=== PATIENT | male | born 1990 | race Caucasian/White ===

== ENCOUNTER 2016-08-05 23:01 | Emergency (ER) | payer OTHER ==
[2016-08-05 23:23] VITALS: BP 107/56; PULSE 70; RESP 20; TEMP 98.1; O2SAT 99
[2016-08-05] MEDS ORDERED: Amoxicillin-Clav 875-125 mg Tab PO STA (23:43)
[2016-08-05] MEDS ORDERED: Amoxicillin-Clav 875-125 mg Tab PO ONE (23:53)
--- NOTE | 2016-08-05 23:57 | C.PDOC ---
History Of Present Illness 25 year old male presents to the ED with complaints of right ear pain and itch for the past 4 days. Patient states the symptoms worsened today and describes the pain as a burning sensation. Denies recent illness, fever, ear discharge, throat pain, or any other complaints at this time. Time Seen by Provider: 08/05/16 23:23 Chief Complaint (Nursing): ENT Problem History Per: Patient History/Exam Limitations: None Onset/Duration Of Symptoms: Days Current Symptoms Are (Timing): Still Present Quality (Ear): denies: Discharge Severity: Mild Pain Scale Rating Of: 5 Past Medical History Reviewed: Historical Data, Nursing Documentation, Vital Signs Vital Signs: Last Vital Signs Temp 98.1 F 08/05/16 23:20 Pulse 70 08/05/16 23:20 Resp 20 08/05/16 23:20 BP 107/56 L 08/05/16 23:20 Pulse Ox 99 08/06/16 00:18 - Medical History PMH: No Chronic Diseases Family History: States: No Known Family Hx - Social History Hx Alcohol Use: No Hx Substance Use: No - Immunization History Hx Tetanus Toxoid Vaccination: No Review Of Systems Except As Marked, All Systems Reviewed And Found Negative. Constitutional: Negative for: Fever, Chills ENT: Positive for: Ear Pain (+Right ear pain). Negative for: Ear Discharge, Throat Pain Respiratory: Negative for: Cough Musculoskeletal: Negative for: Neck Pain Skin: Negative for: Rash Physical Exam - Physical Exam Appears: Non-toxic, No Acute Distress Skin: Normal Color, Warm, Dry Head: Atraumatic, Normacephalic Eye(s): bilateral: Normal Inspection Ear(s): Left: Normal, Right: TM Erythema, Other (+Normal external canal. No mastoid tenderness) Oral Mucosa: Moist Throat: Normal, No Erythema, No Exudate Neck: Normal ROM, Supple Lymphatic: No Adenopathy Cardiovascular: Rhythm Regular, No Friction Rub, No Murmur Respiratory: Normal Breath Sounds, No Accessory Muscle Use, No Rales, No Rhonchi , No Wheezing Extremity: Normal ROM Neurological/Psych: Oriented x3, Normal Speech, Normal Cognition, Normal Motor, Normal Sensation Gait: Steady ED Course And Treatment O2 Sat by Pulse Oximetry: 99 (Room air) Pulse Ox Interpretation: Normal Medical Decision Making Medical Decision Making: Patient treated with Augmentin and Motrin. Rx given and patient advised to follow up with his PMD. Disposition - Disposition Referrals: Sarkis Simmons MD [Staff Provider] - Disposition: HOME/ ROUTINE Disposition Time: 00:16 Condition: GOOD Additional Instructions: Follow up with the medical doctor within 1-2 days without fail. Return if worsened. Prescriptions: Amoxicillin/Clavulanate [Augmentin 875 MG-125 MG] 1 tab PO BID #14 tab Ibuprofen [Motrin] 600 mg PO TID #21 tab Instructions: Otitis Media (ED) - Clinical Impression Clinical Impression: Otitis media - PA / [employer] INS[employer] / Resident Statement MD/DO has reviewed & agrees with the documentation as recorded. - Scribe Statement The provider has reviewed the documentation as recorded by the Scribe Luis Iverson. All medical record entries made by the Scribe were at my direction and personally dictated by me. I have reviewed the chart and agree that the record accurately reflects my personal performance of the history, physical exam, medical decision making, and the department course for this patient. I have also personally directed, reviewed, and agree with the discharge instructions and disposition.
== END 2016-08-06 00:23 | disposition home or self-care (01) ==
LOC: C.ER 23:01
DX: H66.91 Otitis media, unspecified, right ear (principal)

== ENCOUNTER 2017-08-03 16:35 | Emergency (ER) | payer OTHER ==
[2017-08-03 16:41] VITALS: BP 132/67; PULSE 92; RESP 18; TEMP 98.4; O2SAT 98
--- NOTE | 2017-08-03 17:08 | C.PDOC ---
History Of Present Illness Patient presents to ED c/o B/L low back pain radiating down the right leg since Monday. Patient states symptoms began after a coworker fell and he tried to help lift them up (bent over at the waist). He denies direct trauma, sensory changes, fever, urinary retention, bowel/bladder incontinence. Patient has been taking ibuprofen without relief. Time Seen by Provider: 08/03/17 16:45 Chief Complaint (Nursing): Lower Extremity Problem/Injury History Per: Patient History/Exam Limitations: no limitations Onset/Duration Of Symptoms: Days (6) Current Symptoms Are (Timing): Still Present Severity: Moderate Past Medical History Reviewed: Historical Data, Nursing Documentation, Vital Signs Vital Signs: Last Vital Signs Temp 98.4 F 08/03/17 16:39 Pulse 92 H 08/03/17 16:39 Resp 18 08/03/17 16:39 BP 132/67 08/03/17 16:39 Pulse Ox 98 08/03/17 18:11 - Medical History PMH: No Chronic Diseases Surgical History: No Surg Hx Family History: States: No Known Family Hx - Social History Hx Alcohol Use: No Hx Substance Use: No - Immunization History Hx Tetanus Toxoid Vaccination: No Hx Influenza Vaccination: No Review Of Systems Except As Marked, All Systems Reviewed And Found Negative. Constitutional: Negative for: Fever, Chills Respiratory: Negative for: Shortness of Breath Gastrointestinal: Negative for: Nausea, Vomiting, Abdominal Pain Genitourinary: Negative for: Dysuria, Hematuria Musculoskeletal: Positive for: Back Pain Physical Exam - Physical Exam Appears: Well, Non-toxic, In Acute Distress (in moderate pain ) Skin: Normal Color, Warm, Dry, No Rash Oral Mucosa: Moist Cardiovascular: Rhythm Regular Respiratory: Normal Breath Sounds, No Rales, No Rhonchi, No Wheezing Gastrointestinal/Abdominal: Normal Exam, Bowel Sounds, Soft, No Tenderness Back: No CVA Tenderness, No Vertebral Tenderness, Paraspinal Tenderness (B/L lumbar paraspinal TTP) Neurological/Psych: Oriented x3, Normal Motor, Normal Sensation Gait: Steady ED Course And Treatment O2 Sat by Pulse Oximetry: 98 (RA) Pulse Ox Interpretation: Normal - Other Rad LS SPINE XRAY X-Ray: Interpreted by Me, Viewed By Me (arthritic changes, no fractures/ listhesis) Progress Note: Xrays of LS spine ordered and reviewed. Patient given IM toradol and PO flexeril. Reevaluation Time: 18:05 Reassessment Condition: Improved (On reassessment, patient's pain has improved and he states he feels better. He is ambulating normally in ED. Rxs for Prednisone, Naprosyn and Flexeril given, and patient instructed to follow up with PMD/clinic in 1-2 days. He understands he should return to ED if symptoms worsen.) Disposition Counseled Patient/Family Regarding: Studies Performed, Diagnosis, Need For Followup, Rx Given - Disposition Referrals: [facility] [Outside] Disposition: HOME/ ROUTINE Disposition Time: 18:05 Condition: STABLE Additional Instructions: FOLLOW UP WITH YOUR DOCTOR/CLINIC IN 1-2 DAYS USE MEDICATIONS DIRECTED RETURN TO EMERGENCY ROOM IF SYMPTOMS WORSEN Prescriptions: Cyclobenzaprine [Flexeril] 10 mg PO BID PRN #15 tab PRN Reason: Muscle Spasm Naproxen [Naprosyn] 1 tab PO BID PRN #25 tab PRN Reason: Pain predniSONE [predniSONE Tab] 40 mg PO DAILY #8 tab Instructions: Lumbar Muscle Strain (DC) Forms: [employer] (Bangladeshi) Print Language: FIJIAN - Clinical Impression Clinical Impression: Muscle strain, Low back pain, Lumbar radiculopathy
--- NOTE | 2017-08-03 18:22 | RAD ---
PROCEDURE: Radiographs of the Lumbar Spine. HISTORY: low back pain COMPARISON: No prior. FINDINGS: BONES: Straightened lumbar curvature without fracture or spondylolisthesis identified. No destructive bony lesion appreciable. DISC SPACES: Mild disc height loss L5-S1 indicates limited degenerative disc changes here a likely also at L1-2 intervertebral disc. OTHER FINDINGS: None. IMPRESSION: Limited multilevel degenerative disc disease. No fracture or spondylolisthesis although straightening of lumbar curvature is appreciated.
== END 2017-08-03 18:14 | disposition home or self-care (01) ==
LOC: C.ER 16:35
DX: S39.012A Strain of muscle, fascia and tendon of lower back, initial encounter (principal); X50.9XXA Other and unspecified overexertion or strenuous movements or postures, initial encounter; Y92.89 Other specified places as the place of occurrence of the external cause; Y99.0 Civilian activity done for income or pay; M54.16 Radiculopathy, lumbar region
CPT/HCPCS: 72100; 96372; 99283; J1885